=== PATIENT | female | born 1980 | race Caucasian/White ===

== ENCOUNTER 2016-07-16 20:01 | Emergency (ER) | payer OTHER ==
[2016-07-16 20:02] VITALS: BMI 21.4
[2016-07-16] MEDS ORDERED: Sodium Chloride 0.9% 1,000 ML IV ONE (21:02)
--- NOTE | 2016-07-16 21:02 | C.PDOC ---
History Of Present Illness Patient complains of nausea, vomiting and epigastric pain worsening over the past 2 days. PO intake decreased due to emesis. Patient denies any fever, chills , or contact with infection. Time Seen by Provider: 07/16/16 21:01 Chief Complaint (Nursing): Abdominal Pain History Per: Patient History/Exam Limitations: no limitations Onset/Duration Of Symptoms: Days Current Symptoms Are (Timing): Still Present Severity: Moderate Pain Scale Rating Of: 4 Location Of Pain/Discomfort: Epigastric Associated Symptoms: Nausea, Vomiting. denies: Fever, Chills Past Medical History Reviewed: Historical Data, Nursing Documentation, Vital Signs Vital Signs: Last Vital Signs Temp 98.0 F 07/16/16 20:12 Pulse 101 H 07/16/16 20:12 Resp 18 07/16/16 20:12 BP 100/68 07/16/16 20:12 Pulse Ox 100 07/16/16 21:31 - [facility] Procedures MONITORING NOS (03/05/13) INFLUENZA VACCINATION (03/10/13) REPAIR OB LACERATION NEC (03/10/13) Family History: States: No Known Family Hx - Social History Hx Tobacco Use: No Hx Alcohol Use: Yes Hx Substance Use: No - Immunization History Hx Tetanus Toxoid Vaccination: Yes Hx Influenza Vaccination: No Hx Pneumococcal Vaccination: No Review Of Systems Constitutional: Negative for: Fever, Chills Gastrointestinal: Positive for: Nausea, Vomiting, Abdominal Pain (Epigastric) Physical Exam - Physical Exam Appears: Well, Non-toxic Skin: Warm, Dry Oral Mucosa: Moist Cardiovascular: Rhythm Regular Respiratory: No Rales, No Rhonchi, No Wheezing Gastrointestinal/Abdominal: Bowel Sounds (Tympanic to percussion), Tenderness ( Mild diffuse, epigastric), No Distention, No Guarding, No Rebound Neurological/Psych: Oriented x3 ED Course And Treatment - Laboratory Results Result Diagrams: 07/16/16 21:20 07/16/16 21:20 O2 Sat by Pulse Oximetry: 100 Pulse Ox Interpretation: Normal Progress Note: Blood work, urinalysis, and HCG qualitative urine test ordered. Pepcid IVP, IV fluids, and Zofran Inj administered. Reevaluation Time: 23:54 Reassessment Condition: Improved Disposition Counseled Patient/Family Regarding: Studies Performed, Diagnosis, Need For Followup, Rx Given - Disposition Referrals: Erin Dennis MD [Staff Provider] - Disposition: HOME/ ROUTINE Disposition Time: 21:01 Condition: FAIR Prescriptions: Ondansetron ODT [Zofran ODT] 1 odt PO BID PRN #10 odt PRN Reason: Nausea/Vomiting Instructions: Abdominal Pain (ED), Acute Nausea and Vomiting (ED) - Clinical Impression Clinical Impression: Abdominal pain, Nausea, Vomiting, Diarrhea - Scribe Statement The provider has reviewed the documentation as recorded by the Scribdionte Bowman All medical record entries made by the Giovanniibdionte were at my direction and personally dictated by me. I have reviewed the chart and agree that the record accurately reflects my personal performance of the history, physical exam, medical decision making, and the department course for this patient. I have also personally directed, reviewed, and agree with the discharge instructions and disposition.
[2016-07-16 21:32] LABS: BASO % 0.4 % (0.0-2.0); EOS # 0.1 K/uL (0.0-0.7); EOS % 1.1 % (0.0-4.0); MEAN CELL VOLUME 80.6 fL (81.0-99.0); MONO # 0.5 K/uL (0.0-0.8)
[2016-07-16 21:32] LABS: RBC URINE 9 /hpf (0-3); URINE BACTERIA OCC (<OCC); URINE BILIRUBIN NEGATIVE (NEGATIVE); URINE BLOOD 2+ (NEGATIVE); URINE COLOR Yellow (YELLOW); URINE GLUCOSE (UA) NORMAL (Normal); URINE KETONE NEGATIVE (NEGATIVE); URINE LEUKOCYTE ESTERASE TRACE Leu/uL (Negative); URINE PROTEIN NEGATIVE (NEGATIVE); URINE UROBILINOGEN NORMAL mg/dL (0.2-1.0); WBC URINE 2 /hpf (0-5)
[2016-07-16 21:33] LABS: CHLORIDE 101 mmol/L (98-107); POTASSIUM 3.7 mmol/L (3.6-5.2); SODIUM 139 mmol/L (132-148)
[2016-07-16 21:35] LABS: AST/SGOT 29 U/L (14-36); BILIRUBIN,TOTAL 0.2 mg/dL (0.2-1.3); CARBON DIOXIDE 25 mmol/L (22-30); GFR AFRICAN-AMERICAN > 60
[2016-07-16 21:36] LABS: ALKALINE PHOSPHATASE 59 U/L (38-126); ALT/SGPT 22 U/L (9-52); BLOOD UREA NITROGEN 14 mg/dL (7-17); CALCIUM 8.4 mg/dl (8.6-10.4); GLUCOSE,RANDOM 84 mg/dL (65-105); TOTAL PROTEIN 6.9 g/dL (6.3-8.3)
[2016-07-16 21:37] LABS: HEMATOCRIT 41.6 % (34.0-47.0); LYMPH # 1.8 K/uL (1.0-4.3); MEAN CORPUSCULAR HEMOGLOBIN 26.8 pg (27.0-31.0); MEAN CORPUSCULAR HGB CONC 33.3 g/dL (33.0-37.0); MEAN PLATELET VOLUME 7.7 fL (7.2-11.7); MONO % 8.9 % (0.0-10.0); NRBC % 0.1 % (0.0-2.0); WHITE BLOOD COUNT 5.8 K/uL (4.8-10.8)
[2016-07-16] MEDS ORDERED: Iodixanol 320 MG/ML 100 ML BOTTLE IV ONE (22:01)
[2016-07-17 00:08] VITALS: BP 128/72; PULSE 78; RESP 20; TEMP 98.3; O2SAT 98
--- NOTE | 2016-07-17 08:28 | CT ---
PROCEDURE: CT Abdomen and Pelvis with contrast HISTORY: abd pain, elevated lipase COMPARISON: None available TECHNIQUE: Contrast dose: 100 mL Visipaque 320 Radiation dose: Total exam DLP = 215.84 mGy-cm. FINDINGS: Examination limited by paucity of intra-abdominal and intrapelvic fat. LOWER THORAX: Unremarkable. LIVER: Unremarkable. GALLBLADDER AND BILE DUCTS: Unremarkable. PANCREAS: Unremarkable. SPLEEN: Unremarkable. ADRENALS: Unremarkable. KIDNEYS AND URETERS: The kidneys enhance symmetrically. No hydronephrosis or obstructing calculus identified. VASCULATURE: No aortic aneurysm. BOWEL: The stomach is nondistended. Lack of oral contrast limits evaluation for bowel pathology. No evidence of bowel obstruction. APPENDIX: No secondary signs of acute appendicitis. PERITONEUM: Small pelvic free fluid. No free air. LYMPH NODES: Unremarkable. No enlarged lymph nodes. BLADDER: Unremarkable. REPRODUCTIVE: Unremarkable. BONES: No acute fracture. OTHER FINDINGS: Small fat containing umbilical hernia. IMPRESSION: No acute findings. Small pelvic free fluid. Additional incidental findings as above. Preliminary impression was provided by [facility].
== END 2016-07-17 00:06 | disposition home or self-care (01) ==
LOC: C.ER 20:01
DX: R10.13 Epigastric pain (principal); R11.2 Nausea with vomiting, unspecified; R19.7 Diarrhea, unspecified

== ENCOUNTER 2017-01-18 11:58 | Emergency (ER) | payer OTHER ==
[2017-01-18 11:58] VITALS: BMI 21.4
--- NOTE | 2017-01-18 12:50 | C.PDOC ---
History Of Present Illness 36 yo comes to the ED for evaluation of pain and swelling of left ankle since earlier today. Patient reports she missed a step yesterday, twisted ankle and has pain and swelling today. She denies any numbness or tingling and offers no additional medical complaints. Time Seen by Provider: 01/18/17 12:40 Chief Complaint (Nursing): Lower Extremity Problem/Injury History Per: Patient History/Exam Limitations: no limitations Onset/Duration Of Symptoms: Days (1) Current Symptoms Are (Timing): Still Present Recent travel outside of the [place]: No - Ankle/Foot Description Of Injury: Struck Against Object Past Medical History Reviewed: Historical Data, Nursing Documentation, Vital Signs Vital Signs: Last Vital Signs Temp 98.2 F 01/18/17 13:41 Pulse 90 01/18/17 13:41 Resp 17 01/18/17 13:41 BP 100/60 01/18/17 13:41 Pulse Ox 98 01/18/17 13:41 - Medical History PMH: No Chronic Diseases Surgical History: No Surg Hx - [facility] Procedures MONITORING NOS (03/05/13) INFLUENZA VACCINATION (03/10/13) REPAIR OB LACERATION NEC (03/10/13) Family History: States: No Known Family Hx, Unknown Family Hx - Social History Hx Tobacco Use: No Hx Alcohol Use: Yes Hx Substance Use: No - Immunization History Hx Tetanus Toxoid Vaccination: Yes Hx Influenza Vaccination: No Hx Pneumococcal Vaccination: No Review Of Systems Musculoskeletal: Positive for: Foot Pain (left foot pain) Neurological: Negative for: Weakness, Numbness Physical Exam - Physical Exam Additional Physical Exam Comments: Constitutional: No acute distress. WDWN. Head: Normocephalic. Atraumatic. Neck: Supple. Cardiovascular: Regular rate and rhythm. Respiratory: Clear to auscultation bilaterally. Musculoskeletal: Mild swelling and tenderness to left lateral malleolus. Normal pulses. Full ROM left ankle. Sensations intact. Neurologic: Alert, no focal deficit. ED Course And Treatment O2 Sat by Pulse Oximetry: 96 Medical Decision Making Medical Decision Making: Impression: 36y/o female with left foot and ankle pain Plan: -- XR left foot -- Tylenol 975 mg PO 132 pm no fx noted n xray, air splint and crutches given. instruction in crutch use given. d/c with podiatry f/u Disposition Counseled Patient/Family Regarding: Studies Performed, Diagnosis, Need For Followup, Rx Given - Disposition Referrals: Podiatry Clinic [Outside] Disposition: HOME/ ROUTINE Disposition Time: 13:34 Condition: STABLE Additional Instructions: Rest- use crutches for a few days and do not weight bear on left foot , then gradually start to. Ice0- cold compresses to left ankle several times a day. Elevate foot whenever possible to help decrease swelling. Follow up with podiatry. Instructions: Ankle Sprain (ED), Crutch Instructions (ED), Ankle Stirrup Splint (ED) Forms: General Discharge Instructions, [facility] (Italian), Work Excuse - Clinical Impression Clinical Impression: Left ankle sprain - PA / [employer] / Resident Statement MD/DO has reviewed & agrees with the documentation as recorded. - Scribe Statement The provider has reviewed the documentation as recorded by the Scribe María Morse All medical record entries made by the Giovanniibdionte were at my direction and personally dictated by me. I have reviewed the chart and agree that the record accurately reflects my personal performance of the history, physical exam, medical decision making, and the department course for this patient. I have also personally directed, reviewed, and agree with the discharge instructions and disposition.
[2017-01-18 13:41] VITALS: BP 100/60; PULSE 90; RESP 17; TEMP 98.2
--- NOTE | 2017-01-18 13:50 | RAD ---
PROCEDURE: Left Ankle Radiographs. HISTORY: twisted foot, lat mal pain and swell COMPARISON: None FINDINGS: BONES: No evidence of acute displaced fracture nor dislocation. Osseous structures appear intact including the talar dome. Ankle mortise maintained. JOINTS: No evidence of significant osteoarthritis. SOFT TISSUES: Mild soft tissue swelling overlying the lateral malleolus. OTHER FINDINGS: None. IMPRESSION: No evidence of displaced fracture nor dislocation. Mild soft tissue swelling overlying the lateral malleolus If symptoms persist or occult fracture suspected clinically consider followup radiographs 5-10 days as most fractures should become radiographically evident in this timeframe.
[2017-01-19 14:09] VITALS: O2SAT 96
== END 2017-01-18 13:40 | disposition home or self-care (01) ==
LOC: C.ER 11:58
DX: S93.402A Sprain of unspecified ligament of left ankle, initial encounter (principal); X50.9XXA Other and unspecified overexertion or strenuous movements or postures, initial encounter